=== PATIENT | female | born 1990 | race Two or more races ===

== ENCOUNTER 2016-04-22 19:17 | Emergency (ER) | payer OTHER ==
[2016-04-22 19:26] VITALS: BP 172/110; PULSE 75; RESP 22; TEMP 98.1; O2SAT 95
== END 2016-04-22 19:29 | disposition left against medical advice (07) ==
LOC: CED 19:17
DX: R10.9 Unspecified abdominal pain (principal); Z53.9 Procedure and treatment not carried out, unspecified reason

== ENCOUNTER 2016-09-09 08:41 | Day surgery (SDC) | payer MEDICAID ==
[2016-09-09] MEDS ORDERED: LIDOCAINE 1% 2 ML INJ ID PRN (09:16)
[2016-09-09] MEDS ORDERED: LR 1,000 ML IV ONE (09:16)
[2016-09-09] MEDS ORDERED: LIDOCAINE 1% 2 ML INJ ONE ×2 (09:18→09:19)
--- NOTE | 2016-09-09 10:44 | PDANEPAE ---
ANE History of Present Illness Recurrent abdominal pain of unknown origin ANE Past Medical History - Cardiovascular History Hx Hypertension: No Hx Arrhythmias: No Hx Chest Pain: No Hx Coronary Artery / Peripheral Vascular Disease: No Hx CHF / Valvular Disease: No Hx Palpitations: No Cardiovascular History Comment: tachycardia d/t anxiety - Pulmonary History Hx COPD: No Hx Asthma/Reactive Airway Disease: Yes Hx Recent Upper Respiratory Infection: No Hx Oxygen in Use at Home: No Hx Sleep Apnea: No Sleep Apnea Screening Result - Last Documented: Negative Pulmonary History Comment: asthma- uses inhaler instructed pt to bring dop - Neurologic History Hx Cerebrovascular Accident: No Hx Seizures: No Hx Dementia: No - Endocrine History Hx Diabetes: No - Renal History Hx Renal Disorders: No - Liver History Hx Hepatic Disorders: No - Neurological & Psychiatric Hx Hx Neurological and Psychiatric Disorders: Yes Neurological / Psychiatric History Comment: anxiety. depression - Cancer History Hx Cancer: No - Congenital Disorder History Hx Congenital Disorders: No - GI History Hx Gastrointestinal Disorders: Yes Gastrointestinal History Comment: reflux. nausea. vomitting. certain allergies to foods - Other Health History Other Health History: wears glasses. braces to teeth. rash to neck d/t allergies - Chronic Pain History Chronic Pain: No - Surgical History Prior Surgeries: appy. umbilical hernia repair ANE Review of Systems - Exercise capacity METS (RN): 4 METS ANE Patient History - Allergies Allergies/Adverse Reactions: No Known Allergies Allergy (Verified 09/07/16 11:43) - Home Medications Home Medications: ALPRAZolam 09/07/16 [Last Taken 09/09/16 07:30] FLUOXETINE HCL 09/07/16 [Last Taken 09/09/16 07:30] - NPO status NPO Since - Liquids (Date): 09/08/16 NPO Since - Liquids (Time): 21:30 NPO Since - Solids (Date): 09/08/16 NPO Since - Solids (Time): 20:00 - Smoking Hx Smoking Status: Never smoked - Family Anes Hx Family Hx Anesthesia Complications: dad wakes up angry ANE Labs/Vital Signs - Vital Signs Blood Pressure: 106/77 Heart Rate: 55 Respiratory Rate: 16 O2 Sat (%): 95 Height: 167.64 cm Weight: 120.202 kg
[2016-09-09] MEDS ORDERED: MIDAZOLAM 2 MG/2 ML VIAL IVP ONE (10:45)
[2016-09-09] MEDS ORDERED: ONDANSETRON 4 MG/2 ML VIAL IVP ONE (10:45)
[2016-09-09] MEDS ORDERED: PROPOFOL/EMULSION 500 MG/50 ML BOTTLE IV ONE (10:49)
[2016-09-09] MEDS ORDERED: MIDAZOLAM 2 MG/2 ML VIAL ONE (10:50)
--- NOTE | 2016-09-09 11:04 | PDGENHP ---
History & Physical Chief Complaint: cc: RUQ abdominal pain History of Present Illness: 26 year old female presents with complaints of RUQ abdominal pain, nausea, and vomiting. 5 months duration. Pertinent Past, Social, Family History: PMHx: asthma. SoHx: No alc or cigs. FaMHx: No CRC. Relevant Physical Exam: HEENT: anicteric. CV: RRR +s1s2 No m/r/g. Lungs: CTAB No w/r/r. Abd: soft, nt, + bs. Cardiorespiratory Assessment: asa 3
[2016-09-09] MEDS ORDERED: INDOMETHACIN 50 MG SUPP PR PRN (11:05)
[2016-09-09] MEDS ORDERED: NS 500 ML IV SCH (11:15)
--- NOTE | 2016-09-09 11:21 | POSTOPPROG ---
Post Op Note Date of Operation: 09/09/16 Surgeon: Elpidio Shepard Anesthesia: IV Sedation Pre-op Diagnosis: ruq abdominal pain, nausea, vomiting Post-op Diagnosis: gastritis, hh Indication: ruq abdominal pain Procedure: EGD with biopsies Findings: gastritis, hh Inf/Abcess present in the surg proc area at time of surgery?: No EBL: Minimal
[2016-09-09 11:36] VITALS: TEMP 97.3
[2016-09-09] MEDS ORDERED: NALOXONE HCL 0.4 MG/ML INJ IVP PRN (11:37)
[2016-09-09] MEDS ORDERED: ONDANSETRON 4 MG/2 ML VIAL IVP PRN (11:37)
--- NOTE | 2016-09-09 11:37 | POSTANESTH ---
Post Anesthetic Evaluation Respiratory Status: Normal, Stable Level of Consciousness/Mental Status: Can Participate in Eval Pain Control: Adequate, Prn Tx Ordered Nausea/Vomiting Control: Adequate, Prn Tx Ordered Complications Possibly Related to Anesthesia: None Noted
[2016-09-09 12:02] VITALS: PULSE 60; RESP 14; O2SAT 98
--- NOTE | 2016-09-09 12:05 | GPN ---
[f rep st] PROCEDURE NOTE DATE OF PROCEDURE: 09/09/2016 PROCEDURE: Esophagogastroduodenoscopy with biopsy. INDICATION: The patient is a 26-year-old female who presents with complaints of right upper quadrant epigastric abdominal pain as well as nausea and vomiting. She presents for further evaluation. CONSENT: Risks, benefits, and alternatives of the procedure were discussed in great detail with the patient. Risk of infection, bleeding, perforation, and sedation were discussed. All questions answered. Informed consent obtained. MEDICATIONS: Propofol. Please see Anesthesia record for details. ESTIMATED BLOOD LOSS: Insignificant. ESOPHAGOGASTRODUODENOSCOPY EXAMINATION: The Olympus upper endoscope was inserted into the mouth and advanced to the esophagus. The proximal, mid, and distal esophagus were normal in appearance. The stomach was entered and closely examined, including retroflexed view of angularis, cardia, and fundus. The patient was noted to have a moderate hiatal hernia. The mucosa in the antrum and the body of the stomach was erythematous in a patchy distribution, and biopsies were taken. The duodenal bulb and second portion of the duodenum were normal in appearance. Biopsy taken for celiac sprue. IMPRESSION: 1. Hiatal hernia. 2. Gastritis, status post biopsy. 3. Biopsies taken for celiac sprue. RECOMMENDATIONS: 1. Follow up on biopsies. 2. She needs to moss picker her prescription for PPI therapy. 3. Follow up in the office as directed. /[id number]/MODL MTDD
[2016-09-09 12:34] VITALS: BP 129/64
== END 2016-09-09 12:40 | disposition home or self-care (01) ==
LOC: FSGY 08:41
PROVIDERS: ATTEND Internal Medicine Gastroenterology
PROC: 0DB68ZX Excision of Stomach, Via Natural or Artificial Opening Endoscopic, Diagnostic (ICD-10-PCS; principal; 2016-09-09 11:00)
PROC: 0DB98ZX Excision of Duodenum, Via Natural or Artificial Opening Endoscopic, Diagnostic (ICD-10-PCS; principal; 2016-09-09 11:00)
DX: K44.9 Diaphragmatic hernia without obstruction or gangrene (principal); K29.70 Gastritis, unspecified, without bleeding; J45.909 Unspecified asthma, uncomplicated
CPT/HCPCS: J2250; J2704